=== PATIENT | female | born 1975 | race Caucasian/White ===

== ENCOUNTER → 2022-08-18 15:39 | Outpatient (CLI) | payer OTHER, SELFPAY ==
[2022-08-18 17:11] LABS: Alanine Aminotransferase 21 IU/L (<35); Albumin 4.4 g/dL (3.5-5.0); Albumin Globulin Ratio 1.5 (1.0-2.8); Alkaline Phosphatase 69 U/L (38-126); Aspartate Aminotransferase 23 IU/L (14-36); BUN Creatinine Ratio 16.7 (6-22); Bilirubin Total 0.4 mg/dL (0.2-1.3); Blood Urea Nitrogen 11 mg/dL (7-17); Calcium 9.1 mg/dL (8.4-10.2); Carbon Dioxide 28 mmol/L (22-32); Chloride 102 mmol/L (98-107); Cholesterol 204 mg/dL (140-199); Estimated Glomerular Filt Rate > 60 mL/min (>60); Glucose 96 mg/dL (70-100); HDL Cholesterol 68 mg/dL (40-60); HEMOLYSIS < 15 (0-50); LDL Cholesterol Calculated 119 mg/dL (<100); Potassium 3.6 mmol/L (3.4-5.1); Sodium 138 mmol/L (137-145); Total Protein 7.4 g/dL (6.3-8.2); Triglycerides 87 mg/dL (35-150)
[2022-08-18 17:38] LABS: TSH w/ Reflex to FT4 0.88 uIU/mL (0.47-4.68)
[2022-08-21 14:25] LABS: Hep C Virus Ab w/Reflex Quant NEGATIVE s/c (NEGATIVE)
== END ==
PROVIDERS: PCP Nurse Practitioner Family; Referring Provider Nurse Practitioner Family; Visit Provider Nurse Practitioner Family
DX: Z11.59 Encounter for screening for other viral diseases (principal); Z13.220 Encounter for screening for lipoid disorders; Z13.1 Encounter for screening for diabetes mellitus
CPT/HCPCS: 36415; 80053; 80061; 84443; 86803

== ENCOUNTER → 2022-08-31 15:32 | Outpatient (CLI) | payer OTHER, SELFPAY ==
--- NOTE | 2022-08-31 15:40 | DI.RAD.S_ITS ---
PROCEDURE: XR LUMBAR SPINE 2-3V INDICATIONS: HIP PAIN, BACK PAIN TECHNIQUE: 3 views of the lumbar spine were acquired. COMPARISON: None. FINDINGS: Bones: 5 [id number] vertebrae are present. There is normal bony alignment. No vertebral body compression fractures. No suspicious bony lesions. There is some mild degenerative disc disease present at L2-L3. Soft tissues: Overlying bowel gas pattern is normal. No suspicious soft tissue calcifications. IMPRESSION: 1. No evidence for acute osseous abnormality involving the lumbar spine. 2. Mild degenerative disc disease present at L2-L3. Dictated by: Tom Car M.D. on 08/31/2022 at 17:28 Approved by: Tom Car M.D. on 08/31/2022 at 17:32
--- NOTE | 2022-08-31 15:40 | DI.RAD.S_ITS ---
PROCEDURE: XR HIP W PEL IF DONE LT 2V INDICATIONS: HIP PAIN, BACK PAIN TECHNIQUE: AP pelvis with lateral view(s) of the left hip(s). COMPARISON: None. FINDINGS: Bones: No fractures or dislocations. Pelvic ring appears intact. No suspicious bony lesions. Soft tissues: The visualized bowel gas pattern is normal. No suspicious soft tissue calcifications. IMPRESSION: Negative left hip and pelvis. Dictated by: Tom Car M.D. on 08/31/2022 at 17:32 Approved by: Tom Car M.D. on 08/31/2022 at 17:33
== END ==
PROVIDERS: PCP Nurse Practitioner Family; Referring Provider Nurse Practitioner Family; Visit Provider Nurse Practitioner Family
DX: M51.36 Other intervertebral disc degeneration, lumbar region (principal); M54.50 Low back pain, unspecified; M25.552 Pain in left hip; M54.32 Sciatica, left side
CPT/HCPCS: 72100; 73502

== ENCOUNTER → 2022-09-27 15:07 | Outpatient (CLI) | payer OTHER, SELFPAY ==
--- NOTE | 2022-09-27 15:23 | DI.DEXA.S_ITS ---
Bone Density Report Name: MARITA BISWAS Age: 47 Sex: Female Ethnicity: White Date of : 1975 Indication: postmenopausal; Referring Provider: DICKSON ORANTES Study: Bone densitometry was performed. Exam Date: September 27, 2022 Accession number: [id number] Bone Density: Region BMD T-score Z-score Classification AP Spine(L1-L4) 0.840 -1.9 -1.2 Osteopenia Femoral Neck (Left) 0.749 -0.9 -0.3 Normal Total Hip (Left) 0.928 -0.1 0.3 Normal Femoral Neck (Right) 0.790 -0.5 0.1 Normal Total Hip (Right) 0.964 0.2 0.6 Normal Total Hip Mean 0.946 0.1 0.5 Normal World Health Organization criteria for BMD impression classify patients as: Normal (T-score at or above -1.0), Osteopenia (T-score between -1.0 and -2.5), or Osteoporosis (T-score at or below -2.5). 10-year Fracture Risk(1): Major Osteoporotic Fracture 3.9% Hip Fracture 0.4% Reported Risk Factors: [place] (), Neck BMD=0.749, BMI=22.9, smoking, alcohol use (1) FRAX(R) Version 3.08. Fracture probability calculated for an untreated patient. Fracture probability may be lower if the patient has received treatment. Impression: The patient has low bone mass, based on the Total Spine T-score. The patient has an estimated ten-year risk of hip fracture of 0.4% and an estimated ten-year risk of major fracture of 3.9%, based on the WHO FRAX algorithm. The patient has risk factors, including: smoking, excessive alcohol use. Discussion: BONE DENSITY IS LOW AT ONE OR MORE SKELETAL SITES. This patient's lowest T-score is low at one or more skeletal sites. It meets the World Health Organization's (WHO) criteria for ?low bone mass? (T-score between -1.0 and -2.5). The patient's 10-year risk of fracture as calculated by FRAX is less than the threshold where pharmacological therapy is recommended by the National Osteoporosis Foundation (NOF). However, all treatment decisions require clinical judgment and consideration of individual patient factors, including patient preferences, comorbidities, previous drug use, risk factors not captured in the FRAX model (e.g., frailty, falls, vitamin D deficiency, increased bone turnover, interval significant decline in bone density) and possible under or overestimation of fracture risk by FRAX. The patient should follow a healthful lifestyle (good nutrition with adequate calcium and vitamin D, and appropriate weight-bearing exercise). Follow-Up: Consider repeating this study in 2 to 3 years to reassess this patient's status, or sooner if there is some new clinical indication. Reported by: ANNELIESE KYLE M.D. on 09/27/2022 3:41:00 PM.
--- NOTE | 2022-09-27 15:32 | DI.RAD.S_ITS ---
PROCEDURE: XR KNEE LT 3V INDICATIONS: BILATERAL KNEE PAIN TECHNIQUE: 3 views of the knee were acquired. COMPARISON: [facility], CR, XR KNEE RT 3V, 09/27/2022, 15:29. FINDINGS: Bones: No fractures or dislocations. No suspicious bony lesions. Soft tissues: No joint effusion. No suspicious soft tissue calcifications. IMPRESSION: No significant osseous abnormality. Dictated by: Zi Donaldson M.D. on 09/27/2022 at 16:43 Approved by: Zi Donaldson M.D. on 09/27/2022 at 16:43
--- NOTE | 2022-09-27 15:32 | DI.RAD.S_ITS ---
PROCEDURE: XR KNEE RT 3V INDICATIONS: BILATERAL KNEE PAIN TECHNIQUE: 3 views of the knee were acquired. COMPARISON: [facility], CR, XR KNEE LT 3V, 09/27/2022, 15:29. FINDINGS: Bones: No fractures or dislocations. No suspicious bony lesions. Soft tissues: No joint effusion. No suspicious soft tissue calcifications. IMPRESSION: No significant osseous abnormality. Dictated by: Zi Donaldson M.D. on 09/27/2022 at 16:42 Approved by: Zi Donaldson M.D. on 09/27/2022 at 16:43
== END ==
PROVIDERS: PCP Nurse Practitioner Family; Referring Provider Nurse Practitioner Family; Visit Provider Nurse Practitioner Family
DX: M25.561 Pain in right knee; M25.562 Pain in left knee; M85.88 Other specified disorders of bone density and structure, other site; Z78.0 Asymptomatic menopausal state
CPT/HCPCS: 73562; 77080

== ENCOUNTER → 2023-05-10 07:19 | Outpatient (CLI) | payer OTHER, SELFPAY | PROVIDERS: PCP Nurse Practitioner Family; Referring Provider Nurse Practitioner Family; Visit Provider Nurse Practitioner Family | DX: R05.3 Chronic cough (principal); F17.210 Nicotine dependence, cigarettes, uncomplicated; J98.8 Other specified respiratory disorders | CPT/HCPCS: 94060; 94726; 94729 ==

== ENCOUNTER 2023-10-28 07:20 | Emergency (ER) | payer OTHER, SELFPAY ==
[2023-10-28 07:35] VITALS: BP 111/59; PULSE 60; RESP 17; TEMP 36.6; O2SAT 100; BMI 22.8
--- NOTE | 2023-10-28 07:35 | ED_ITS ---
HPI - General Adult General Chief complaint: Extremity Injury, Upper Stated complaint: R SHOULDER, RIB PAIN Time Seen by Provider: 10/28/23 07:34 History of Present Illness HPI narrative: 48-year-old female right-handed, fell last night, with 300 lb neighbor who was trying to keep her from falling and fell himself landing on her, causing her to have right shoulder and right upper chest discomfort, difficulty sleeping last night due to pain, persisting/worsening pain to right shoulder and right shoulder blade area and upper right chest this morning. Upper right chest pain worse with inspiration. No cough, shortness of breath. No fevers chills. No numbness or tingling to the right upper extremity. No lower extremity symptoms. Denies neck pain. She did not blackout. Denies headache. Related Data Home Medications Medication Instructions Recorded Confirmed albuterol sulfate 90 mcg/actuation 2 puff inhalation Q4-6H PRN 07/04/23 07/04/23 aerosol inhaler aripiprazole 15 mg tablet 15 mg PO DAILY 07/04/23 07/04/23 budesonide-formoterol HFA 160 2 puff inhalation BID 07/04/23 07/04/23 mcg-4.5 mcg/actuation aerosol inhaler (Symbicort) duloxetine 30 mg capsule,delayed 30 mg PO DAILY 07/04/23 07/04/23 release duloxetine 30 mg capsule,delayed 60 mg PO DAILY 07/04/23 07/04/23 release gabapentin 400 mg capsule 400 mg PO TID 07/04/23 07/04/23 montelukast 10 mg tablet 10 mg PO DAILY 07/04/23 07/04/23 trazodone 100 mg tablet 100 mg PO BEDTIME PRN 07/04/23 07/04/23 valacyclovir 500 mg tablet 500 mg PO BID 07/04/23 07/04/23 Previous Rx's Medication Instructions Recorded methocarbamol 500 mg tablet 500 mg PO TID rhomboid muscle 10/28/23 strain 7 days #21 tabs naproxen 500 mg tablet 500 mg PO BID 7 days #14 tabs 10/28/23 Allergies Allergy/AdvReac Type Severity Reaction Status Date / Time No Known Drug Allergies Allergy Verified 10/28/23 07:39 Review of Systems Review of Systems Narrative: as per HPI Patient History Social History Smoking Status: Current every day smoker Smoking Status: Current every day smoker Exam Narrative Exam Narrative: GENERAL: Well-developed patient, in mild distress. HEAD: Atraumatic. Normocephalic. EYES: Pupils equal round and reactive. Extraocular motions intact. No scleral icterus. No injection or drainage. ENT: Nose without bleeding, purulent drainage. Throat without erythema, tonsillar hypertrophy or exudate. Airway patent. NECK: Trachea midline. Non tender CARDIOVASCULAR: Regular rate and rhythm without murmurs, gallops, or rubs. Some tenderness superior anterior chest wall, no crepitance or air emphysema, no bruising abrasions or lacerations. No paradoxical chest wall movements. RESPIRATORY: Clear to auscultation. Breath sounds equal bilaterally. No wheezes, rales, or rhonchi. GASTROINTESTINAL: Abdomen soft, non-tender, nondistended. EXTREMITIES: Tenderness to upper and lower rhomboid musculature, no significant tenderness superior trapezius on that side, nor along anterior deltoid or bicipital groove, nor along clavicle, limited flexion and extension right shoulder due to scapular area discomfort. Some tenderness over the scapula as well. BACK: Nontender without deformity or crepitance. No flank tenderness. NEURO: AOx3. SKIN: No rash or erythema of visible areas Initial Vital Signs Initial Vital Signs: Vital Signs Temperature 97.9 F 10/28/23 07:35 Pulse Rate 60 10/28/23 07:35 Respiratory Rate 17 10/28/23 07:35 Blood Pressure 111/59 L 10/28/23 07:35 Pulse Oximetry 100 10/28/23 07:35 Oxygen Delivery Method Room Air 10/28/23 07:35 Course Orders Ordered: Discontinued Medications Ketorolac Tromethamine (Ketorolac 30 Mg/Ml Vial) 30 mg IM NOW ONE Stop: 10/28/23 07:46 Last Admin: 10/28/23 08:31 Dose: 30 mg Documented By: DEE Midazolam HCl (Midazolam 5 Mg/Ml Vial) 5 mg IM NOW ONE Stop: 10/28/23 07:40 Last Admin: 10/28/23 08:31 Dose: 5 mg Documented By: DEE Tramadol HCl (Tramadol 50 Mg Prepack) 1 bottle MISC DIRECTED ONE Stop: 10/28/23 09:25 Last Admin: 10/28/23 09:46 Dose: 1 bottle Documented By: SERGE Vital Signs Vital signs: Vital Signs - 8 hr 10/28/23 07:35 10/28/23 09:05 10/28/23 09:06 Temperature 97.9 F Pulse Rate 60 96 H Respiratory Rate 17 20 Blood Pressure 111/59 L 101/59 L Pulse Oximetry 100 97 Oxygen Delivery Method Room Air Room Air 10/28/23 09:06 Temperature Pulse Rate 69 Respiratory Rate Blood Pressure Pulse Oximetry 99 Oxygen Delivery Method Medical Decision Making Imaging Data Chest x-ray: Radiologist's Impression: [address] [id number] XRay Report Signed Patient: Adams Herrmann MR#: [id number] : 1975 Acct:[id number] Age/Sex: 48 / F Date of Service: 10/28/23 Loc: ED Accession Number: [id number] Procedure: XR ribs RT min 3V w CXR1V Ordering Provider: Karl Casillas MD PROCEDURE: XR RIBS RT MIN 3V W CXR 1V INDICATIONS: GLF, upper R chest pain TECHNIQUE: 2 views of the ribs were acquired, along with a single view chest. COMPARISON: None. FINDINGS: Surgical changes and devices: None. Bones and chest wall: Right posterior 6th and 7th rib fractures. Minimal displacement. No suspicious bony lesions. Overlying soft tissues appear unremarkable. Lungs and pleura: No pleural effusions or pneumothorax. Lungs appear clear. Mediastinum: Mediastinal contours appear normal. Heart size is normal. IMPRESSION: Right posterior 6-7th rib fractures. No pneumothorax. Dictated by: Zi Donaldson M.D. on 10/28/2023 at 8:39 Approved by: Zi Donaldson M.D. on 10/28/2023 at 8:41 XR shoulder: Radiologist's Impression: [address] [id number] XRay Report Signed Patient: Adams Herrmann MR#: [id number] : 1975 Acct:[id number] Age/Sex: 48 / F Date of Service: 10/28/23 Loc: ED Accession Number: [id number] Procedure: XR shoulder RT min 2V Ordering Provider: Karl Casillas MD PROCEDURE: XR SHOULDER RT MIN 2V INDICATIONS: GLF right chest/shoulder/scapula pain TECHNIQUE: 3 views of the shoulder were acquired. COMPARISON: [facility], CR, XR RIBS RT MIN 3V W CXR 1V, 10/28/2023, 8:02. FINDINGS: Bones: Right 6th and 7th rib fractures. No shoulder dislocation or fracture. No suspicious bony lesions. Visualized ribs appear intact. Soft tissues: No suspicious soft tissue calcifications. IMPRESSION: No shoulder dislocation or fracture. Right 6th and 7th rib fractures. Dictated by: Zi Donaldson M.D. on 10/28/2023 at 9:09 Approved by: Zi Donaldson M.D. on 10/28/2023 at 9:12 MDM Narrative Medical decision making narrative: Ground level fall with large neighbor falling on top of her who was attempting to assist her to keep her from falling, injury last night, persisting right upper chest pain, right shoulder pain, right scapular pain. X-rays requested chest, right shoulder, including scapular views. On exam suspect rhomboid strain, patient has a ride home, IM Toradol for pain control, IM Versed for muscle relaxant Additional Information: X-rays right shoulder and right chest/ribs, show posterior right 6th and 7th rib fractures, no shoulder injuries or scapula pathology, no pneumothorax. See radiologist reports. Copies given to patient. Pain seems improved with IM Versed and Toradol. Discharged on naproxen, tramadol home pack. Incentive spirometer with teaching dispensed. Deep breathing advised, prevention of atelectasis/pneumonia discussed. Recheck symptoms with regular provider in the next couple of days. Return precautions discussed. Improved, stable for discharge Discharge Plan Departure Patient Disposition: Home Clinical Impression: Fracture, ribs Activity Restrictions/Additional Instructions: Ground level fall last night with right shoulder scapula area posterior chest discomfort, also right upper chest discomfort, on examination no grossly obvious shoulder dislocation, no tenderness along clavicle, no tenderness on the scapula itself but some along the rhomboid musculature. X-rays showed no shoulder or scapular fracture, did show fracture to the posterior portion of rib 6 and rib 7, no damage by x-ray to underlying lung structures. Placed in shoulder sling for comfort. Muscle relaxant injection Versed and Toradol anti-inflammatory pain medication given. Some improvement in symptoms. Discharge with tramadol prepack. Consider use of naproxen for pain control. Muscle relaxant Robaxin to use if needed. Incentive spirometer to encourage deep breathing to prevent lung collapse in increased risk for pneumonia. Recheck lung exam and symptoms with your regular doctor in the next couple of days. Return to this/nearest emergency department for any change worsening symptoms or any concerns prior Prescriptions: New naproxen 500 mg tablet 500 mg PO BID 7 Days Qty: 14 0RF methocarbamol 500 mg tablet 500 mg PO TID 7 Days Qty: 21 0RF No Action budesonide-formoterol [Symbicort] 160-4.5 mcg/actuation HFA aerosol inhaler 2 puff inhalation BID albuterol sulfate 90 mcg/actuation HFA aerosol inhaler 2 puff inhalation Q4-6H PRN aripiprazole 15 mg tablet 15 mg PO DAILY trazodone 100 mg tablet 100 mg PO BEDTIME PRN gabapentin 400 mg capsule 400 mg PO TID montelukast 10 mg tablet 10 mg PO DAILY duloxetine 30 mg capsule,delayed release(DR/EC) 60 mg PO DAILY duloxetine 30 mg capsule,delayed release(DR/EC) 30 mg PO DAILY valacyclovir 500 mg tablet 500 mg PO BID Referrals: Carmel Roman RN [Primary Care Provider] - Stand Alone Forms: Patient Portal/API
--- NOTE | 2023-10-28 08:00 | DI.RAD.S_ITS ---
PROCEDURE: XR SHOULDER RT MIN 2V INDICATIONS: GLF right chest/shoulder/scapula pain TECHNIQUE: 3 views of the shoulder were acquired. COMPARISON: [facility], CR, XR RIBS RT MIN 3V W CXR 1V, 10/28/2023, 8:02. FINDINGS: Bones: Right 6th and 7th rib fractures. No shoulder dislocation or fracture. No suspicious bony lesions. Visualized ribs appear intact. Soft tissues: No suspicious soft tissue calcifications. IMPRESSION: No shoulder dislocation or fracture. Right 6th and 7th rib fractures. Dictated by: Zi Donaldson M.D. on 10/28/2023 at 9:09 Approved by: Zi Donaldson M.D. on 10/28/2023 at 9:12
--- NOTE | 2023-10-28 08:01 | DI.RAD.S_ITS ---
PROCEDURE: XR RIBS RT MIN 3V W CXR 1V INDICATIONS: GLF, upper R chest pain TECHNIQUE: 2 views of the ribs were acquired, along with a single view chest. COMPARISON: None. FINDINGS: Surgical changes and devices: None. Bones and chest wall: Right posterior 6th and 7th rib fractures. Minimal displacement. No suspicious bony lesions. Overlying soft tissues appear unremarkable. Lungs and pleura: No pleural effusions or pneumothorax. Lungs appear clear. Mediastinum: Mediastinal contours appear normal. Heart size is normal. IMPRESSION: Right posterior 6-7th rib fractures. No pneumothorax. Dictated by: Zi Donaldson M.D. on 10/28/2023 at 8:39 Approved by: Zi Donaldson M.D. on 10/28/2023 at 8:41
[2023-10-28] MEDS: KETOROLAC 30 MG/ML VIAL IM (08:31)
[2023-10-28] MEDS: MIDAZOLAM 5 MG/ML VIAL IM (08:31)
[2023-10-28 09:05] VITALS: PULSE 96; RESP 20; O2SAT 97
[2023-10-28 09:06] VITALS: BP 101/59; PULSE 69; O2SAT 99
[2023-10-28 09:30] VITALS: PULSE 76; O2SAT 98
[2023-10-28 09:32] VITALS: BP 102/62; PULSE 73; O2SAT 96
[2023-10-28] MEDS: TRAMADOL 50 MG PREPACK 1 BOTTLE MISC (09:46)
[2023-10-28 10:00] VITALS: BP 109/63; PULSE 64; O2SAT 98
== END 2023-10-28 10:11 | disposition home or self-care (01) ==
PROVIDERS: Emergency Provider Emergency Medicine; PCP Nurse Practitioner Family
DX: S22.41XA Multiple fractures of ribs, right side, initial encounter for closed fracture (principal); M25.511 Pain in right shoulder; X58.XXXA Exposure to other specified factors, initial encounter
CPT/HCPCS: 71101; 73030; 96372; 99283; J1885; J2250

== ENCOUNTER → 2024-11-29 14:45 | Outpatient (CLI) | payer OTHER, SELFPAY ==
--- NOTE | 2024-11-29 14:46 | DI.CT.S_ITS ---
PROCEDURE: CT LUNG LOW DOSE SCREENING INDICATIONS: screening TECHNIQUE: Noncontrast 2.0-2.5 mm thick sections acquired from the pulmonary apices to the posterior costophrenic angles. 7 mm thick axial MIP, and 5 mm coronal and sagittal reformats were then acquired. For radiation dose reduction, the following was used: automated exposure control, adjustment of mA and/or kV according to patient size. COMPARISON: None. FINDINGS: Image quality: Diagnostic. Lower Neck: No enlarged lymph nodes. Thyroid: No thyroid nodules which require sonographic follow up, per consensus guidelines. Axillae: No enlarged lymph nodes. Chest Wall: Unremarkable. Bones: Visualized osseous structures appear intact without acute fracture or focal destructive lesion. No acute compression fractures of the imaged spine. Lungs and Pleura: No pneumothorax or pleural effusions. No consolidation or suspicious nodules. Visualized airways appear clear. No septal thickening or nodularity. Heart: Heart size is normal. No pericardial effusion. Thoracic Vessels: The aorta and pulmonary arteries demonstrate normal size. Mediastinum and Delaney: No enlarged lymph nodes. Esophagus: No wall thickening. No hiatal hernia. Upper Abdomen: Visualized upper abdomen solid organs and bowel loops appear normal. IMPRESSION: No suspicious pulmonary nodules. LUNG-RADS 1; continued annual screening, if eligible. Clinically Significant Non-pulmonary Findings: None. Dictated by: Jesus Ivory M.D. on 11/29/2024 at 22:09 Approved by: Jesus Ivory M.D. on 11/29/2024 at 22:14
== END ==
PROVIDERS: PCP Family Medicine; Referring Provider Family Medicine; Visit Provider Family Medicine
DX: Z12.2 Encounter for screening for malignant neoplasm of respiratory organs (principal); F17.210 Nicotine dependence, cigarettes, uncomplicated
CPT/HCPCS: 71271

== ENCOUNTER → 2025-02-25 13:38 | Outpatient (CLI) | payer OTHER, SELFPAY ==
[2025-02-25 14:03] LABS: UR Morphine/Opiate cutoff 300 Negative (Negative); Ur Specific Gravity Normal (Normal); Urine MDMA Negative (Negative); Urine Methamphetamines Negative (Negative); Urine Tetrahydrocannabinol Positive (Negative); Urine Tricyclic Antidepressant Negative (Negative)
[2025-02-25 14:12] LABS: Alanine Aminotransferase 43 IU/L (<35); Albumin 4.4 g/dL (3.5-5.0); Albumin Globulin Ratio 1.4 (1.0-2.8); Alkaline Phosphatase 63 U/L (38-126); Blood Urea Nitrogen 10 mg/dL (7-17); Calcium 9.1 mg/dL (8.4-10.2); Carbon Dioxide 26 mmol/L (22-32); Chloride 104 mmol/L (98-107); Cholesterol 191 mg/dL (140-199); Estimated Glomerular Filt Rate > 60 mL/min (>60); Globulin 3.2 g/dL (1.7-4.1); Glucose 85 mg/dL (70-99); HDL Cholesterol 99 mg/dL (40-60); HEMOLYSIS 36 (0-50); Potassium 3.9 mmol/L (3.4-5.1); Sodium 136 mmol/L (137-145); Total Protein 7.6 g/dL (6.3-8.2); Triglycerides 52 mg/dL (35-150)
[2025-02-25 14:17] LABS: Add Manual Diff / Slide Review NO; Hematocrit 38.0 % (36-46); Hemoglobin 13.1 g/dL (12.0-16.0); Lymphocytes Absolute Auto 2300 /uL (1100-4500); Mean Corpuscular HGB Conc 34.6 % (30-36); Mean Corpuscular Hemoglobin 33.3 PG (26-34); Mean Corpuscular Volume 96.0 fL (80-100); Platelet Count 262 X10^3/uL (150-400)
[2025-02-25 14:43] LABS: TSH w/ Reflex to FT4 0.57 uIU/mL (0.47-4.68)
== END ==
PROVIDERS: PCP Family Medicine; Referring Provider Family Medicine; Visit Provider Family Medicine
DX: Z68.21 Body mass index [BMI] 21.0-21.9, adult (principal); F19.10 Other psychoactive substance abuse, uncomplicated; F17.200 Nicotine dependence, unspecified, uncomplicated; R05.3 Chronic cough; Z13.220 Encounter for screening for lipoid disorders
CPT/HCPCS: 36415; 80053; 80061; 80305; 84443; 85025